=== PATIENT | male | born 1960 | race African-American/Black ===

== ENCOUNTER → 2016-11-22 | Outpatient (CLI) | payer BC ==
[2014-05-20 17:33] VITALS: BP 113/66
[~2016-11-22] MED LIST: AMLO10TA4 PO; ATEN1TAB3 PO; HYDR12.58 PO; IBUP-1060 PO; METH-38 PO; MULT1TAB52 PO; OXYC-323 PO; OXYC5CAP PO; PRED2.5T PO; SENN1TAB7 PO; TAMS0.4C2 PO
--- NOTE | 2016-11-22 13:29 | EKG ---
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
[2016-11-22 13:30] LABS: BASO % 1 % (0-3); EOS % 2 % (0-3); HEMATOCRIT 39.2 % (39.0-53.0); LYMPH # 1.5 x10^3/uL (1.0-4.8); LYMPH % 39 % (24-48); MEAN CORPUSCULAR HEMOGLOBIN 29 pg (25-35); MEAN CORPUSCULAR HGB CONC 33 g/dL (31-37); MEAN CORPUSCULAR VOLUME 86 fL (79-100); MONO % 10 % (0-9); NEUT % 49 % (31-73); PLATELET COUNT 129 x10^3/uL (140-400); RED BLOOD COUNT 4.58 x10^6/uL (4.30-5.70); RED CELL DISTRIBUTION WIDTH 13.2 % (11.5-14.5); WHITE BLOOD COUNT 3.9 x10^3/uL (4.0-11.0)
[2016-11-22 13:40] LABS: INR 1.1 (0.8-1.1); PROTHROMBIN TIME PATIENT 13.6 SEC (11.7-14.0)
[2016-11-22 14:04] LABS: ALBUMIN 3.5 g/dL (3.4-5.0); ALBUMIN/GLOBULIN RATIO 1.1 (1.0-1.7); CALCIUM 8.1 mg/dL (8.5-10.1); CREATININE 1.2 mg/dL (0.7-1.3); GFR 75.5; POTASSIUM 3.9 mmol/L (3.5-5.1); TOTAL BILIRUBIN 0.5 mg/dL (0.2-1.0); TOTAL PROTEIN 6.8 g/dL (6.4-8.2)
== END | disposition home or self-care (01) ==
LOC: SURGPAT 12:58
PROVIDERS: ATTEND Neurological Surgery
DX: M54.16 Radiculopathy, lumbar region (principal)
CPT/HCPCS: 36415; 80053; 85025; 85610; 85730; 87641; 93005

== ENCOUNTER 2016-11-27 07:29 | Observation (INO) | payer BC ==
[2016-11-27] VITALS (15 sets, daily range): BP systolic 114–169; BP diastolic 88–109
[~2016-11-27] VITALS: Ht 180.3 cm; Wt 88.5 kg
[~2016-11-27 07:29] MED LIST changes: -AMLO10TA4 PO; +BACITRACIN 50,000 UNIT in IV NORMAL SALINE 1000ML BAG 1,000 ML IRR ONE; +BUPIVAC MPF-EPI 0.5%-1:200000 10 ML VIAL. ONE; +BUPIVACAINE MPF 0.5% 30 ML VIAL. ONE; +GELATIN SPONGE SIZE 100. ONE; +HYDROmorphone 2 MG/ML VIAL IV PRN; +IV RINGERS,LACTATED 1000ML 1,000 ML IV SCH; +LIDOCAINE 1% 1 ML SYRINGE. ID PRN; +LIDOCAINE 2%/EPI 1:100,000 20 ML VIAL. ONE; -METH-38 PO; -MULT1TAB52 PO; +ONDANSETRON PF 4 MG/2 ML VIAL. IV PRN; +PROCHLORPERAZINE 10 MG/2 ML VIAL. IV PRN; -SENN1TAB7 PO; +THROMBIN TOPICAL 20,000 UNIT SPRAY.SYRN KIT TP ONE; +fentaNYL PF VIAL 100 MCG/2 ML VIAL IV PRN
[2016-11-27] MEDS ORDERED: LIDOCAINE 2% PF Vial for OR 5 ML VIAL. ONE (08:18)
[2016-11-27] MEDS ORDERED: PROPOFOL 20 ML IV ONE (08:18)
[2016-11-27] MEDS ORDERED: DEXAMETHASONE SOD PHOS 20 MG/5 ML VIAL. ONE (08:18)
[2016-11-27] MEDS ORDERED: ONDANSETRON PF 4 MG/2 ML VIAL. ONE (08:18)
[2016-11-27] MEDS ORDERED: fentaNYL PF VIAL 100 MCG/2 ML VIAL ONE ×3 (08:19→13:10)
[2016-11-27] MEDS ORDERED: ePHEDrine PF IN SALINE 50 MG/5 ML DISP.SYRIN IV ONE (08:19)
[2016-11-27] MEDS ORDERED: REMIFENTANIL 2 MG VIAL. IV ONE (08:19)
[2016-11-27] MEDS ORDERED: PROPOFOL 50 ML IV ONE (08:19)
[2016-11-27] MEDS ORDERED: MIDAZOLAM HCL/PF 5 MG/5 ML VIAL. ONE (08:35)
[2016-11-27] MEDS ORDERED: ROCURONIUM 100 MG/10 ML VIAL. ONE (08:47)
[2016-11-27] MEDS ORDERED: DESFLURANE > 120 MINUTES IH ONE (09:30)
--- NOTE | 2016-11-27 12:05 | PDOC ---
BRIEF OPERATIVE NOTE Date: Nov 27, 2016 Pre-Op Diagnosis lumbar stenosis, lumbar radiculopathy Post-Op Diagnosis same Procedure Performed bilateral laminectomy L3-4, L4-5 Surgeon Antoinette Applications System Analyst none Anesthesiologist [place] Anesthesia Type: General Blood Loss 100mL Specimens Obtained decompression Findings prominent stenosis due to degenerative changes, neuromonitoring remained at least baseline throughout the procedure Complications none apparent MIRELLA MORALES MD Nov 27, 2016 12:05
[2016-11-27] MEDS ORDERED: ACETAMINOPHEN 325 MG TABLET. PO PRN (12:15)
[2016-11-27] MEDS ORDERED: fentaNYL PF VIAL 100 MCG/2 ML VIAL IV PRN ×2 (12:15)
[2016-11-27] MEDS ORDERED: ZOLPIDEM 5 MG TABLET. PO PRN (12:15)
[2016-11-27] MEDS ORDERED: diphenhydrAMINE 50 MG/ML VIAL IV PRN (12:15)
[2016-11-27] MEDS ORDERED: PREDNISONE 2.5 MG PO PRN (12:15)
[2016-11-27] MEDS ORDERED: MAG HYDROX/ALUMINUM HYD/SIMETH 30 ML ORAL.SUSP PO PRN (12:15)
[2016-11-27] MEDS ORDERED: NALOXONE 0.4 MG/ML VIAL. IV PRN (12:15)
[2016-11-27] MEDS ORDERED: diphenhydrAMINE HCL 25 MG CAPSULE PO PRN (12:15)
[2016-11-27] MEDS ORDERED: ONDANSETRON PF 4 MG/2 ML VIAL. IV PRN (12:15)
[2016-11-27] MEDS ORDERED: CALCIUM CARBONATE 500 MG TAB.CHEW PO PRN (12:15)
[2016-11-27] MEDS ORDERED: 0.9 % SODIUM CHLORIDE 10 ML DISP.SYRIN. IV PRN (12:15)
[2016-11-27] MEDS ORDERED: MAGNESIUM HYDROXIDE 2,400 MG/30 ML ORAL.SUSP. PO PRN (12:15)
[2016-11-27] MEDS: fentaNYL PF VIAL 100 MCG/2 ML VIAL IV PRN ×4 (12:33→13:25)
[2016-11-27] MEDS ORDERED: MORPHINE SULFATE 4 MG/ML DISP.SYRIN. ONE (12:47)
[2016-11-27] MEDS: MORPHINE SULFATE 2 MG/ML DISP.SYRIN. IV PRN ×3 (12:55→13:26)
[2016-11-27] MEDS ORDERED: MULT1TAB52 PO (14:16)
[2016-11-27] MEDS: oxyCODONE/APAP 5/325 1 TAB TABLET PO PRN ×4 (14:37→21:54)
[2016-11-27] MEDS: FERROUS SULFATE 325 MG TABLET. PO SCH (17:42)
[2016-11-27] MEDS: CALCIUM CARB/VIT D3 500/200 TABLET. PO SCH (17:42)
[2016-11-27] MEDS: SENNOSIDES/DOCUSATE 8.6/50MG TABLET. PO SCH (21:55)
[2016-11-27] MEDS: METHOCARBAMOL 750 MG TABLET PO SCH (21:55)
[2016-11-27] MEDS: DOCUSATE SODIUM 100 MG CAPSULE. PO SCH (21:55)
[2016-11-28 03:15] VITALS: BP 164/114
[2016-11-28] MEDS: oxyCODONE/APAP 5/325 1 TAB TABLET PO PRN ×4 (03:49→16:33)
[2016-11-28 04:00] VITALS: BP 143/96
[2016-11-28] MEDS ORDERED: cloNIDine HCL 0.1 MG TABLET PO ONE (05:30)
[2016-11-28 07:17] VITALS: BP 176/103
[2016-11-28] MEDS: SENNOSIDES/DOCUSATE 8.6/50MG TABLET. PO SCH (08:54)
[2016-11-28] MEDS: METHOCARBAMOL 750 MG TABLET PO SCH ×2 (08:54→14:34)
[2016-11-28] MEDS: DOCUSATE SODIUM 100 MG CAPSULE. PO SCH (08:54)
[2016-11-28] MEDS: FERROUS SULFATE 325 MG TABLET. PO SCH ×2 (08:54→16:33)
[2016-11-28] MEDS: CALCIUM CARB/VIT D3 500/200 TABLET. PO SCH ×2 (08:54→16:33)
[2016-11-28] MEDS ORDERED: MULTIVITAMIN with MINERAL TABLET. PO SCH (09:00)
[2016-11-28] MEDS ORDERED: amLODIPine BESYLATE 10 MG TABLET PO SCH (09:00)
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
--- NOTE | 2016-11-28 10:40 | PDOC ---
SUBJECTIVE Subjective Reports significant improvement/resolution of lower extremity pain and numbness. Reports that he feels steadier with ambulation compared to before surgery. Denies acute complaints this AM. Some elevated BP's reported - may be related to incisional pain, but internal medicine consulted for any additional recs. OBJECTIVE Vital Signs Vital Signs Date Time Temp Pulse Resp B/P (MAP) Pulse Ox O2 Delivery O2 Flow Rate FiO2 11/28/16 10:00 18 Room Air 11/28/16 08:55 80 176/103 11/28/16 08:55 18 Room Air 11/28/16 08:00 Room Air 11/28/16 07:17 98.4 80 20 176/103 (127) 97 Room Air 98.4 11/28/16 05:29 82 164/114 11/28/16 05:00 95 11/28/16 04:00 80 143/96 (112) 11/28/16 03:49 20 95 11/28/16 03:15 98.6 3 20 164/114 (131) 97 Room Air 98.6 11/27/16 23:30 80 160/90 (113) 11/27/16 23:05 98.5 80 23 169/96 (120) 100 Room Air 98.5 11/27/16 23:00 18 94 Room Air 11/27/16 21:54 20 94 Room Air 11/27/16 21:30 79 20 145/89 (107) 97 Room Air 11/27/16 20:30 Nasal Cannula 11/27/16 20:30 80 114/90 (98) 11/27/16 19:45 97.8 79 22 165/92 (116) 98 Room Air 97.8 11/27/16 18:45 98.0 80 18 162/95 (117) 98 Nasal Cannula 2.0 98.0 11/27/16 17:45 97.8 79 18 157/99 (118) 99 Nasal Cannula 2.0 97.8 11/27/16 17:45 16 Room Air 11/27/16 16:45 97.6 81 20 169/109 (129) 98 Nasal Cannula 2.0 97.6 11/27/16 16:15 69 18 160/106 (124) 99 Nasal Cannula 2.0 11/27/16 15:45 149/89 (109) 11/27/16 15:14 98.0 72 20 138/91 (107) 98 Nasal Cannula 2.0 98.0 11/27/16 14:45 148/88 (108) 11/27/16 14:30 97.3 70 18 150/90 (110) 97 Nasal Cannula 2.0 97.3 11/27/16 14:15 152/92 (112) 11/27/16 14:00 97.5 73 18 163/108 (126) 98 Nasal Cannula 2.0 97.5 11/27/16 13:26 15 97 Room Air 2.0 11/27/16 13:25 15 97 Room Air 2.0 11/27/16 13:14 15 97 Nasal Cannula 2.0 11/27/16 13:13 98.1 69 15 160/97 97 Nasal Cannula 2 98.1 11/27/16 13:05 15 94 Room Air 10.0 11/27/16 12:58 97.1 75 15 149/93 94 Room Air 97.1 11/27/16 12:55 15 100 Simple Mask 10.0 11/27/16 12:43 97.1 72 15 145/94 96 Simple Mask 10.0 97.1 11/27/16 12:43 100 Simple Mask 10.0 11/27/16 12:33 13 100 Simple Mask 10.0 11/27/16 12:13 97.1 68 15 150/87 100 Simple Mask 10 97.1 11/27/16 12:13 98.1 75 15 148/97 97 2 98.1 I & O Intake and Output 11/28/16 07:00 Intake Total 2390 ml Output Total 1000 ml Balance 1390 ml Intake Oral 1340 ml IV Total 1050 ml Output Urine Total 900 ml Estimated Blood Loss 100 ml PHYSICAL EXAM Physical Exam AAOx4, NAD, FARFAN 5/5, dressing c/d/i, flat ASSESSMENT/PLAN Assessment/Plan POD 1 lumbar laminectomy -recovering well thus far -activity with standard post-op restrictions -may d/c home from NS standpoint if still okay with IM -appreciate IM consultation Problems: COMMENT Lab Laboratory Tests Test 11/27/16 12:21 Glucose (Fingerstick) 148 mg/dL (70-99) MIRELLA MORALES MD Nov 28, 2016 10:40
[2016-11-28] MEDS ORDERED: SENN1TAB7 PO (11:45)
[2016-11-28] MEDS ORDERED: METH-38 PO (11:46)
[2016-11-28] MEDS ORDERED: AMLO10TA4 PO (11:47)
--- NOTE | 2016-11-28 11:59 | OP ---
DATE OF SURGERY: 11/27/2016 SURGEON: Marcos Morales M.D. SPEECH CLINICIAN: None. PREOPERATIVE DIAGNOSES: Lumbar stenosis, lumbar spondylosis, lumbar radiculopathy with low back pain and gait disturbance. POSTOPERATIVE DIAGNOSES: Lumbar stenosis, lumbar spondylosis, lumbar radiculopathy with low back pain and gait disturbance. PROCEDURE: Bilateral laminectomy of lumbar 3-4 and lumbar 4-5 with intraoperative use of neuromonitoring and intraoperative use of microscope. ANESTHESIA: General. COMPLICATIONS: None intraprocedurally. INDICATIONS FOR THE PROCEDURE: The patient is a pleasant 56-year-old gentleman with significant bilateral lower extremity pain and difficulty with ambulation secondary to this. He has been refractory to multiple conservative treatments and was noted to have prominent stenosis at lumbar 3-4 and lumbar 4-5. Based on these things, it was felt that he may benefit from surgical decompression. Please refer to the patient chart for additional details. DESCRIPTION OF PROCEDURE: After informed consent was obtained, the patient was brought into the operating room. He was placed under general anesthesia. He was placed in the prone position on the Stevie table. All pressure points were checked and padded appropriately. Neuromonitoring was instituted and baseline potentials were obtained. Fluoroscopy was localized in appropriate incision location, centered over the region of lumbar 3-4 and lumbar 4-5. This area was incised in a vertical fashion over the lumbar 3, 4 and 5 spinous processes and the avascular midline was dissected through the spinous processes at these levels. Dissection was carried bilaterally across the lamina at lumbar 3, lumbar 4 and lumbar 5 and the junctions/disk spaces were localized with fluoroscopy prior to the initiation of decompression. Once this was complete, bilateral laminectomy was performed across the junction of lumbar 4-5 cephalad to across the junction at lumbar 3-4 where the disk spaces were located, which were regions of most severe stenosis. This was performed with a Leksell as well as a pneumatic drill and a Kerrison rongeur. The underlying ligaments were noted to be significantly hypertrophied. These were gently dissected free from the neural elements with a Mehul and a blunt nerve hook and gently removed with a pituitary rongeur. Decompression was carried out to the bilateral lateral recesses at these locations. Upon completion of this, the thecal sac was noted to be very well decompressed, which was verified with direct visualization as well as gentle palpation with a Mehul and a Muhammad ball. Fluoroscopically, the extent of the decompression was also verified to be significantly cephalad and caudal to the regions of radiographically identified stenosis. Upon completion of this, pristine hemostasis was achieved with FloSeal, cottonoids, generous irrigation and some use of bipolar electrocautery. The wound was generously irrigated with antibiotic irrigation prior to the final closure. Muscles and fascia were then reapproximated with 0 Vicryl in a simple interrupted fashion. The subcutaneous tissues were reapproximated with 2-0 Vicryl in interrupted inverted fashion and the skin was reapproximated with 4-0 Vicryl in a running subcuticular fashion. Mastisol and Steri-Strips were applied and the wound was dressed with Telfa and Tegaderm. At the end the procedure, all needle and sponge counts were correct times 2. Neuromonitoring potentials remained at least at baseline throughout the integrity of the procedure. The patient was subsequently extubated in the operating room and taken to recovery in stable condition. There were no intraprocedural complications apparent. MARCOS MORALES MD DR: ÁNGEL/marcela JOB#: [id number] / [id number]
[2016-11-28 12:07] VITALS: BP 98/59
[2016-11-28 15:21] VITALS: BP 95/54
[2016-11-28 18:00] VITALS: BP 96/44
--- NOTE | 2016-11-29 09:01 | PATHOLOGY ---
PATHOLOGY REPORT * * * * * * * * FINAL DIAGNOSIS: Segments of fibrocartilaginous, adipose, and skeletal muscle tissue and bone, lumbar decompression: - Degenerative changes of fibrocartilaginous tissue. COMMENT: There is no evidence of an acute inflammatory process or malignancy. (JPM:mgr; 11/28/2016) REPORT ELECTRONICALLY SIGNED BY: John White M.D. DATE/TIME: 11/29/2016 09:00 * * * * * * * * GROSS PATHOLOGY: Received in formalin labeled "Jun Evangelista, lumbar decompression" are multiple segments of limon, rubbery, and gritty tissue admixed with bone. The specimen measures 7.5 x 5.3 x 2.8 cm in aggregate dimensions. The tissue is submitted representatively in cassette A1, following decalcification. (JPM; 11/27/16) INITIAL CPT CODE(S): A; 91465, 64685 Professional services performed [place] [place] [address] Technical services performed by [facility] at [address] [place] [address] [address] [address]. SPECIMEN(S) RECEIVED: A.Lumbar decompression CLINICAL HISTORY: Lumbar stenosis, radiculopathy, low back pain, spondylosis PATIENT: JUN EVANGELISTA JR /AGE: 3 1960 (Age: 56) PATIENT #: [id number] ALT CASE #: SPECIMEN COLLECTION DATE: 11/27/2016 SPECIMEN RECEIVED DATE: 11/27/2016 [facility] - [address] [place] [address] - PHONE: [phone] * * * END OF REPORT * * *
== END 2016-11-28 18:35 | disposition home or self-care (01) ==
LOC: SURG 07:29 → 4 SOUTHEST 12:30
PROVIDERS: ADMIT Neurological Surgery; ATTEND Neurological Surgery
DX: M48.06 Spinal stenosis, lumbar region (principal); M47.26 Other spondylosis with radiculopathy, lumbar region; I97.3 Postprocedural hypertension; G89.29 Other chronic pain; N40.0 Benign prostatic hyperplasia without lower urinary tract symptoms; G47.33 Obstructive sleep apnea (adult) (pediatric)
CPT/HCPCS: 63047; 63048; 76000; 82962; 97161; 97165; G0378; G0379; J1100; J2250; J2270; J2704; J3010; J3490; J7030; 88304; 88311; J2405; J2001

== ENCOUNTER → 2017-03-27 | Outpatient (CLI) | payer BC ==
[~2017-03-27] MED LIST changes: +AMLO10TA4 PO; -BACITRACIN 50,000 UNIT in IV NORMAL SALINE 1000ML BAG 1,000 ML IRR ONE; -BUPIVAC MPF-EPI 0.5%-1:200000 10 ML VIAL. ONE; -BUPIVACAINE MPF 0.5% 30 ML VIAL. ONE; +GADOBUTROL 10 MMOL/10 ML VIAL IV ONE; -GELATIN SPONGE SIZE 100. ONE; -HYDROmorphone 2 MG/ML VIAL IV PRN; -IV RINGERS,LACTATED 1000ML 1,000 ML IV SCH; -LIDOCAINE 1% 1 ML SYRINGE. ID PRN; -LIDOCAINE 2%/EPI 1:100,000 20 ML VIAL. ONE; +METH-38 PO; +MULT1TAB52 PO; -ONDANSETRON PF 4 MG/2 ML VIAL. IV PRN; -PROCHLORPERAZINE 10 MG/2 ML VIAL. IV PRN; +SENN1TAB7 PO; -THROMBIN TOPICAL 20,000 UNIT SPRAY.SYRN KIT TP ONE; -fentaNYL PF VIAL 100 MCG/2 ML VIAL IV PRN
--- NOTE | 2017-03-27 15:12 | KCIC ---
MRI Lumbar Spine without and with contrast History: Lumbar radiculopathy, low back pain, previous surgery Technique: Multiplanar, multi sequential pre and postcontrast MR imaging was performed of the lumbar spine. Contrast: 9 cc Gadavist Comparison: None other than CT lumbar spine exam April 29, 2014 Findings: Lumbar vertebral body stature and AP alignment are preserved. There is no significant edema of the vertebral bodies. There is nonspecific edema of the left L4 and L5 pedicles, very minimally on the right at these levels. There is mild degenerative disc disease at L3-4. Conus terminates at L1-2. There is no nodular enhancement of the conus or cauda equina. There is no enhancement or fluid in the intervertebral disc spaces. There is prominent somewhat heterogeneous enhancing soft tissue posteriorly at sites of posterior decompression at L3-4 and L4-5. There is also more focal fluid collection with mild peripheral enhancement located just deep to the central aspect of the subcutaneous fat at the L3 to L5 levels up to 1.9 cm transverse by 1.6 cm AP by 5.8 cm CC. L1-L2: Spinal canal and neural foramina are adequate. There is mild facet hypertrophic change and buckling of the ligamentum flavum. L2-L3: There is minimal disc osteophyte complex. There is nhca-os-lhfldxqb facet hypertrophic change and buckling of the ligamentum flavum. There is prominence of posterior epidural fat. Spinal canal is not significantly narrowed. Neural foramina are overall adequate. L3-L4: There has been posterior decompression. There is facet hypertrophic change. There is minimal disc osteophyte complex and bulge. Spinal canal is overall adequate. There is minimal inferior narrowing of the right neural foramen from anteriorly by disc osteophyte complex. There is moderate to severe narrowing of the left neural foramen in part from disc osteophyte complex and facet degenerative change. There is also left extraforaminal protrusion with associated annular tear with contact of the ventral undersurface of the extraforaminal left L3 nerve root. L4-L5: There has been posterior decompression. There is bilateral facet degenerative change There is minimal disc osteophyte complex and bulge. Enhancing fibrosis slightly indents the posterior aspect of the thecal sac just below the intervertebral disc space level. The spinal canal is not significantly narrowed. There is moderate narrowing of the left neural foramen by disc osteophyte complex and facet, also smot-kz-wfdnwcuo narrowing on the right. L5-S1: There is moderate to severe facet degenerative change. Spinal canal is adequate, no impingement descending S1 nerve roots. There is jgnb-hd-ojrtkybo, left greater than right neural foramina compromise. There is a small synovial cyst along the anterior margin of the right facet of the 0.3 cm in size, near the dorsal surface exiting right L5 nerve root without significant displacement. Impression: 1. There has been posterior decompression at L3-4 and L4-5, exuberant enhancing presumable fibrosis posteriorly in the soft tissues. There is also nonspecific fluid collection just deep to the central aspect of the subcutaneous fat of uncertain sterility. Enhancing fibrosis slightly indents the posterior aspect of the thecal sac the level of the superior aspect of L5 without significant spinal stenosis. There is nonspecific edema of the left L4 and L5 pedicles, may be reactive/degenerative in etiology. 2. There is mild degenerative disc disease L3-4. There is multilevel mild spondylosis. 3. There is neural foramina compromise as stated greatest on the left at L3-4, also left extraforaminal protrusion at L3-4 contacting the extraforaminal left L3 nerve root. There is a somewhat lesser degree of neural foramina compromise bilaterally at L4-5 and L5-S1. Electronically signed by: Lefty Kaye MD (03/27/2017 3:09 PM) [facility]
== END | disposition home or self-care (01) ==
LOC: KCIC MRI 13:10
PROVIDERS: ATTEND Neurological Surgery
DX: M51.16 Intervertebral disc disorders with radiculopathy, lumbar region (principal)
CPT/HCPCS: 72158; A9585

== ENCOUNTER → 2018-05-19 | Outpatient (CLI) | payer OTHER ==
[~2018-05-19] MED LIST changes: -GADOBUTROL 10 MMOL/10 ML VIAL IV ONE; +MIRA50TA PO; -OXYC-323 PO; +OXYC1TAB15 PO; +SENN-161 PO; -SENN1TAB7 PO
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
== END | disposition home or self-care (01) ==
LOC: PNCL 11:09
PROVIDERS: ATTEND Anesthesiology
DX: M48.07 Spinal stenosis, lumbosacral region (principal); M51.27 Other intervertebral disc displacement, lumbosacral region; M19.90 Unspecified osteoarthritis, unspecified site; M79.604 Pain in right leg; Z88.2 Allergy status to sulfonamides
CPT/HCPCS: G0463

== ENCOUNTER → 2018-06-02 | Outpatient (CLI) | payer OTHER ==
[~2018-06-02] MED LIST changes: +IOHEXOL 180 MG/ML 10 ML VIAL. ONE; +methylPREDNISolone ACETATE 40 MG/ML VIAL. ONE; +methylPREDNISolone ACETATE 80 MG/ML VIAL. ONE
--- NOTE | 2018-06-03 02:42 | PAIN ---
DATE OF SERVICE: 06/02/2018 DIAGNOSES: Lumbar radiculopathy with lumbar spinal stenosis, lumbar degenerative disk disease, post-lumbar laminectomy syndrome. HISTORY OF PRESENT ILLNESS: The patient is a 57-year-old male who returns for followup status post initial evaluation and preauthorization for lumbar epidural steroid injection. The patient has obtained that and would like to proceed today. The patient still reports pain in low back, right lower extremity as it was previously with radiating pain, posterior gluteus, posterior lateral thigh, lateral anterior thigh, medial thigh, posterior thigh, medial lower leg and posterior calf. The patient reports it is worse with walking, standing, change in positions. The patient reports it is a 10 on a scale of 10 at its worst, 10 on average, 8 at its least and is a 10 today. The patient reports it is aching, dull, tight across the low back with tingling, burning, cramping pain into the right leg, radiating, becoming more constant and severe, unbearable, worse with walking, standing, changing positions, better with sitting or lying down, but awakens him from sleep several times at night. The patient reports no new motor or sensory deficits. No new bowel or bladder incontinence, but still significant pain as described. PHYSICAL EXAMINATION: VITAL SIGNS: The patient's blood pressure 119/82, pulse 69, respirations are 16, temperature is 97.9 degrees Fahrenheit, height is 5 feet 11 inches, weight is 218 pounds. GENERAL: The patient is awake, alert, oriented, appropriate, very pleasant demeanor. HEENT: Shows normocephalic, atraumatic. Extraocular movements are intact and symmetrical. Oral cavity: Mucous membranes moist and pink. Dentition is intact. NECK: Shows anterior throat supple without palpable lymphadenopathy noted. Swallow reflex is symmetrical. CHEST: Shows normal on inspection. Breath sounds are clear to auscultation bilaterally. HEART: Shows S1, S2 clear. No murmurs auscultated. ABDOMEN: Soft, nontender, nondistended. No palpable organomegaly is noted. No rebound or guarding demonstrated. BACK: Shows spine grossly in the midline, some flattening of lumbar lordotic curvature is noted with well healed surgical scar. Lumbar paraspinous muscle shows symmetrical on inspection. With palpation shows some moderate tenderness throughout the upper, middle, lower distribution of paraspinous muscles, but only diffusely without radiation. The patient has good rotational motion of lumbar spine, both laterally as well as extension and flexion without difficulty. EXTREMITIES: Lower extremities show deep tendon reflexes 1+ in the patellar and tendo calcaneus tendons are equal. Motor exam is strong with approximately 4 on a scale of 5 with right dorsiflexion and extension and 5/5 on the left. Peripheral pulses are 1+ posterior tibia. No peripheral edema is noted bilaterally. Options were discussed with the patient. The patient's old chart was reviewed as was his current medication regimen updated. Current review of systems is updated today as well and we will proceed with a lumbar epidural steroid injection today with fluoroscopic guidance. Risks were again discussed including, but not limited to bleeding, infection, possibility of epidural hematoma, subsequent neurologic compromise, dural puncture, headaches, spinal cord and/or nerve damage, side effects of steroid medication and poor results regarding pain control. The patient understands and wished to proceed. The patient will return to the clinic in approximately 2 weeks for followup, was counseled on return appointment, activity level and side effects to be aware of. DIAGNOSES: Lumbar radiculopathy with lumbar degenerative disk disease, lumbar spinal stenosis and post-lumbar laminectomy syndrome. PROCEDURE: Lumbar epidural steroid injection, translaminar approach L4-L5 level using C-harjinder fluoroscopic guidance under sterile prep and drape using local anesthetic. MEDICATION INJECTED: A total of 120 mg Depo-Medrol plus 10 mL of preservative-free normal saline and 2 mL of Isovue for contrast. CONDITION AT DISCHARGE: Stable. The patient tolerated the procedure well, had no complications. WENDY CASTELLANOS MD DR: JAMAL/marcela JOB#: [id number] / [id number]
== END | disposition home or self-care (01) ==
LOC: PNCL 10:06
PROVIDERS: ATTEND Anesthesiology
DX: M51.16 Intervertebral disc disorders with radiculopathy, lumbar region (principal); M48.061 Spinal stenosis, lumbar region without neurogenic claudication; M96.1 Postlaminectomy syndrome, not elsewhere classified; Z88.2 Allergy status to sulfonamides
CPT/HCPCS: 62323; J1030; J1040; Q9965

== ENCOUNTER → 2018-06-19 | Outpatient (CLI) | payer OTHER ==
[~2018-06-19] MED LIST changes: -IOHEXOL 180 MG/ML 10 ML VIAL. ONE; -methylPREDNISolone ACETATE 40 MG/ML VIAL. ONE; -methylPREDNISolone ACETATE 80 MG/ML VIAL. ONE
--- NOTE | 2018-06-19 22:20 | PAIN ---
DATE OF SERVICE: 06/19/2018 DIAGNOSES: Lumbar radiculopathy with lumbar spinal stenosis, lumbar degenerative disk disease and post-lumbar laminectomy syndrome. HISTORY OF PRESENT ILLNESS: The patient is a 58-year-old male who returns for followup status post lumbar epidural steroid injection x 1 on 06/02/2018. The patient did very well with a 70% improvement for about the first 3 weeks or so. The patient reports the pain is returning now, but not near baseline, still doing much better. Pain in the low back, right lower extremity radiating to the right lateral anterior thigh, anterior medial thigh, medial lower leg and into the calf on the right side as well as in the low back and right side. The patient reports it is a 9 on a scale of 10 at its worst, now 7 on average, 2 at its least and is a 3 today. The patient reports it is aching, tight, tingling, cramping, shooting, radiating pain becoming more constant, more severe and he is able to increase his activity with distance walking greater, doing work activities, household activities and is able to move about much easier as still awakes him from sleep occasionally, but not every night only sporadically. The patient reports no new motor or sensory deficits, no new bowel or bladder incontinence or other complaints. Again, the patient is doing very well, still doing strengthening exercises. He also says started water physical therapy. He has had two sessions so far as in the session tomorrow feel like this is helping to a mild extent as well. PHYSICAL EXAMINATION: VITAL SIGNS: Today, the patient's blood pressure 150/107, pulse 67, respirations 16, temperature 98.1 degrees Fahrenheit, height is 5 feet 11 inches, weight is 217 pounds. GENERAL: The patient is awake, alert, oriented, appropriate, very pleasant demeanor. HEENT: Head shows normocephalic, atraumatic. Extraocular movements are intact and symmetrical. Oral cavity: Mucous membranes moist and pink. Dentition is intact. NECK: Shows anterior throat supple without palpable lymphadenopathy noted. Swallow reflex symmetrical. CHEST: Shows normal with inspection. Breath sounds are clear to auscultation bilaterally. HEART: Shows S1, S2 clear. No murmurs auscultated. ABDOMEN: Soft, nontender, nondistended. No palpable organomegaly is noted. No rebound or guarding demonstrated. BACK: Shows spine grossly in the midline. Normal appearing thoracic kyphosis and lumbar lordotic curvature. Lumbar lateral curvature is slightly flattened with well-healed surgical scarring. Lumbar paraspinous muscle shows symmetrical on inspection with palpation shows some moderate tenderness only diffusely without significant radiation. EXTREMITIES: The patient's lower extremities show deep tendon reflexes at 1+ in the patellar and tendo-calcaneus tendons. Motor exam is approximately 4 on a scale of 5 on the right, 5/5 on the left. Peripheral pulses are 1+ posterior tibia. No peripheral edema is noted. The patient does have a very mild straight leg raise on the right side about 45 degrees, decreased with knee flexion, left side is negative. Options were discussed with the patient. The patient's old chart was reviewed as his current medication regimen updated. Current review of systems updated today as well. We will preauthorize the patient for a second lumbar epidural steroid injection today with fluoroscopic guidance. The patient will continue to do physical therapy and maintain water therapy appointments and hamstring stretching and strengthening exercises on his own will return to clinic in approximately 1 week. We will plan on second lumbar epidural steroid injection at that time at the L4-L5 level for L4-L5 radiculopathy on the right. WENDY CASTELLANOS MD DR: JAMAL/nts JOB#: [id number] / [id number]
== END | disposition home or self-care (01) ==
LOC: PNCL 10:11
PROVIDERS: ATTEND Anesthesiology
DX: M48.061 Spinal stenosis, lumbar region without neurogenic claudication (principal); M51.16 Intervertebral disc disorders with radiculopathy, lumbar region; M96.1 Postlaminectomy syndrome, not elsewhere classified
CPT/HCPCS: G0463

== ENCOUNTER → 2018-07-03 | Outpatient (CLI) | payer OTHER ==
[~2018-07-03] MED LIST changes: +IOHEXOL 180 MG/ML 10 ML VIAL. ONE; +methylPREDNISolone ACETATE 40 MG/ML VIAL. ONE; +methylPREDNISolone ACETATE 80 MG/ML VIAL. ONE
--- NOTE | 2018-07-03 21:13 | PAIN ---
DATE OF SERVICE: 07/03/2018 PROGRESS NOTE FOR PAIN CLINIC DIAGNOSIS: Lumbar radiculopathy with lumbar spinal stenosis, lumbar degenerative disk disease and post-lumbar laminectomy syndrome. HISTORY OF PRESENT ILLNESS: The patient is a 58-year-old male who returns for followup status post lumbar epidural steroid injection x 1. Again, the patient did approximately 70% better after the first injection. He is preauthorized for a second injection today. He still has pain in the low back, right lower extremity as it was previously, posterior gluteus, posterior thigh, lateral thigh, anterior thigh, medial thigh, medial lower leg and ankle and foot. The patient reports it is a 10 on a scale of 10 at its worst, 10 on average, 6 at its least over the last week. The patient reports it is aching, sharp, dull, tight, shooting, tingling, burning, cramping, radiating, becoming more severe, more constant, on and off in intensity, but worse with standing and walking, better with sitting or lying down. The patient reports it awakens him from sleep now where initially it was not, he was doing better with distance walking, doing activities at home as well as traveling with greater ease and comfort, now it is beginning to awaken him from sleep again. The patient reports no new motor or sensory deficits, no new bowel or bladder incontinence or other complaints. PHYSICAL EXAMINATION: VITAL SIGNS: The patient's blood pressure is 117/62, pulse 75, respirations 16, temperature 98.1 degrees Fahrenheit, height is 5 feet 11 inches, weight is 217 pounds. GENERAL: The patient is awake, alert, oriented, appropriate, very pleasant demeanor. HEENT: Shows normocephalic, atraumatic. Extraocular movements are intact and symmetrical. Oral cavity: Mucous membranes are moist and pink. Dentition is intact. NECK: Shows anterior throat supple without palpable lymphadenopathy noted. Swallow reflex is symmetrical. CHEST: Shows normal on inspection. Breath sounds are clear to auscultation bilaterally. HEART: Shows S1, S2 clear. No murmurs auscultated. ABDOMEN: Soft, nontender, nondistended. No palpable organomegaly is noted. No rebound or guarding demonstrated. BACK: Shows spine grossly in the midline. Normal appearing thoracic kyphosis. Some minor flattening of lumbar lordotic curvature. Well-healed surgical scarring noted in the lumbar distribution. Lumbar paraspinous muscle shows symmetrical on inspection, on palpation shows some moderate tenderness diffusely throughout the upper, middle and lower distribution of the paraspinous muscles, but only diffusely without radiation. The patient has good rotational motion both laterally as well as extension and flexion of the lumbar spine without difficulty. EXTREMITIES: Lower extremities show deep tendon reflexes at 1+ in the patellar and tendo calcaneus tendons. Motor exam is approximately 4 on a scale of 5 on the right with dorsiflexion and extension, 5/5 on the left. Peripheral pulses are 1+ posterior tibia. No peripheral edema is noted bilaterally. Options were discussed with the patient. The patient's old chart was reviewed as his current medication regimen updated. Current review of systems updated today as well. We will proceed with a second in the series of lumbar epidural steroid injection today with fluoroscopic guidance. Risks were again discussed including, but not limited to bleeding, infection, possibility of epidural hematoma, subsequent neurologic compromise, dural puncture, headaches, spinal cord and/or nerve damage, side effects of steroid medication and poor results regarding pain control. The patient understands and wished to proceed. The patient will return to the clinic in approximately 2 weeks for followup, was counseled as to return appointment, activity level and side effects to be aware of. DIAGNOSIS: Lumbar radiculopathy with lumbar degenerative disk disease, lumbar spinal stenosis and post-lumbar laminectomy syndrome. PROCEDURE: Lumbar epidural steroid injection, translaminar approach at L4-L5 level using C-arm fluoroscopic guidance under sterile prep and drape using local anesthetic. MEDICATION INJECTED: A total of 120 mg Depo-Medrol plus 10 mL of preservative-free normal saline and 2 mL of contrast. CONDITION AT DISCHARGE: Stable. The patient tolerated the procedure well, had no complications. WENDY CASTELLANOS MD DR: JAMAL/marcela JOB#: [id number] / [id number]
== END | disposition home or self-care (01) ==
LOC: PNCL 10:20
PROVIDERS: ATTEND Anesthesiology
DX: M51.16 Intervertebral disc disorders with radiculopathy, lumbar region (principal); M48.061 Spinal stenosis, lumbar region without neurogenic claudication; M96.1 Postlaminectomy syndrome, not elsewhere classified; Z88.2 Allergy status to sulfonamides
CPT/HCPCS: 62323; J1030; J1040; Q9965

== ENCOUNTER → 2018-07-17 | Outpatient (CLI) | payer OTHER ==
[~2018-07-17] MED LIST changes: -IOHEXOL 180 MG/ML 10 ML VIAL. ONE; -methylPREDNISolone ACETATE 40 MG/ML VIAL. ONE; -methylPREDNISolone ACETATE 80 MG/ML VIAL. ONE
--- NOTE | 2018-07-18 00:29 | PAIN ---
DATE OF SERVICE: 07/17/2018 PROGRESS NOTE FOR PAIN CLINIC DIAGNOSES: Lumbar radiculopathy with lumbar spinal stenosis, lumbar degenerative disk disease and post lumbar laminectomy syndrome. HISTORY OF PRESENT ILLNESS: The patient is a 58-year-old male who returns for followup status post lumbar epidural steroid injection x 2. The patient reports again about 65% improvement after the last injection, with pain in the low back and right lower extremity still present, but still helping. The patient reports it has been about 3 weeks now since he had the injection and the pain is still decreased by 65%. The patient reports he has some better days than others. Some days, it can be as high as a 10 on a scale of 10. On average, it is an 8 and at its least, it is a 3 and it is a 3 today. The patient reports it is aching, tight, tingling, cramping, shooting, radiating in the right lower extremity in the L4-L5 dermatomal distribution as well as previously on the right side anterior thigh, lateral thigh, anterior medial lower leg, medial calf and into the ankle on the right side. The patient reports again it is worse with walking and standing, better with sitting or lying down. It does not awaken him from sleep currently. The patient reports he is trying to decrease his pain medication and has been successful so far doing this. The patient reports no new motor or sensory deficits. No new bowel or bladder incontinence. Still painful with extended standing greater than 15-20 minutes or walking greater than 15-20 minutes. No new bowel or bladder incontinence or other complaints. PHYSICAL EXAMINATION: VITAL SIGNS: The patient's blood pressure is 150/90, pulse 53, respirations 16 and temperature is 97.9 degrees Fahrenheit. Height is 5 feet 11 inches and weight is 221 pounds. GENERAL: The patient is awake, alert, oriented, appropriate, very pleasant demeanor. HEENT EXAMINATION: Shows normocephalic, atraumatic. Extraocular movements are intact and symmetrical. Oral cavity, mucous membranes are moist and pink. Dentition is intact. NECK: Shows anterior throat supple, without palpable lymphadenopathy noted. Swallow reflex is symmetrical. CHEST: Shows normal on inspection. Breath sounds are clear to auscultation bilaterally. HEART: Shows S1, S2 clear. No murmurs auscultated. ABDOMEN: Soft, nontender and nondistended. No palpable organomegaly is noted. No rebound or guarding demonstrated. BACK: Shows spine grossly in the midline. Normal-appearing thoracic kyphosis and some slight flattening of the lumbar lordotic curvature. Well-healed surgical scar noted. Lumbar paraspinous muscle shows symmetrical on inspection. On palpation, it shows some moderate tenderness diffusely, but only diffusely without radiation. EXTREMITIES: The patient's lower extremities show deep tendon reflexes 1+ in the patellar and tendo calcaneus tendons. Motor exam is approximately 4 on a scale of 5 on the right with dorsiflexion and extension and 5/5 on the left. Peripheral pulses are 1+ posterior tibia. No peripheral edema is noted bilaterally. Options were discussed with the patient. The patient's old chart was reviewed as was his current medication regimen updated. Current review of systems updated today as well. We will proceed with a preauthorization for a third lumbar epidural steroid injection, as the patient has done very well with the first 2, lasting several weeks, still with pain in a radicular pattern at L4-L5 dermatomal distribution on the right. We will preauthorize him for a L4-L5 translaminar approach epidural steroid injection #3. The patient will return to the clinic once preauthorization is made. He will continue with walking and stretching exercises and excising to the best of his ability in the meantime and will follow up as scheduled. WENDY CASTELLANOS MD DR: JAMAL/marcela JOB#: [id number] / [id number]
== END | disposition home or self-care (01) ==
LOC: PNCL 10:05
PROVIDERS: ATTEND Anesthesiology
DX: M51.16 Intervertebral disc disorders with radiculopathy, lumbar region (principal); M48.061 Spinal stenosis, lumbar region without neurogenic claudication; M96.1 Postlaminectomy syndrome, not elsewhere classified
CPT/HCPCS: G0463

== ENCOUNTER → 2018-08-19 | Outpatient (CLI) | payer OTHER ==
--- NOTE | 2018-08-20 00:45 | PAIN ---
DATE OF SERVICE: 08/19/2018 DIAGNOSES: Lumbar radiculopathy with lumbar spinal stenosis, lumbar degenerative disk disease and post-lumbar laminectomy syndrome. HISTORY OF PRESENT ILLNESS: The patient is a 58-year-old male who returns for followup status post lumbar epidural steroid injection x 2, most recently on 07/03/2018. The patient reports about 65% improvement for about a month after the injection. The patient reports the pain is returning now over the past 2 weeks or so, worse with activity, standing, walking, changing positions, across the low back into the right lower extremity as it was previously, posterior lateral thigh, lateral anterior thigh, medial thigh, medial lower leg and calf as well as the medial ankle with some tingling and numbness in the right foot. The patient reports it is worse with standing, walking, better with sitting or lying down, does not awaken him from sleep at night. The patient reports it is aching pain. It is tight, burning, cramping, radiating into the right leg and becoming more constant. No symptoms on the left leg. The patient reports it is an 8 on a scale of 10 at its worst over the past week, 7 on average and a 3 at its least and is a 7 today. The patient reports no new motor or sensory deficits, no new bowel or bladder incontinence or other complaints. PHYSICAL EXAMINATION: VITAL SIGNS: The patient's blood pressure 145/98, pulse 68, respirations 18, temperature 98.2 degrees Fahrenheit, height is 5 feet 11 inches, weight is 222 pounds. GENERAL: The patient is awake, alert, oriented, appropriate, very pleasant demeanor. HEENT: Shows normocephalic, atraumatic. Extraocular movements are intact and symmetrical. Oral cavity: Mucous membranes moist and pink. Dentition is intact. NECK: Shows anterior throat supple without palpable lymphadenopathy noted. Swallow reflex symmetrical. CHEST: Shows normal on inspection. Breath sounds are clear to auscultation bilaterally. HEART: Shows S1, S2 clear. No murmurs auscultated. ABDOMEN: Soft, nontender, nondistended. No palpable organomegaly is noted. No rebound or guarding demonstrated. BACK: Shows spine grossly in the midline. Normal appearing thoracic kyphosis and lumbar lordotic curvature. Lumbar paraspinous muscle shows symmetrical on inspection. On palpation shows some moderate tenderness diffusely with palpation. Well-healed surgical scar is again noted. No trigger points, no radiation, no atrophy or hypertrophy. The patient has good rotational motion of lumbar spine, both laterally as well as extension and flexion without significant difficulty. EXTREMITIES: Lower extremities show deep tendon reflexes at 1+ in the patellar and tendo calcaneus tendons. Motor exam is approximately 4 on a scale 5 on the right with quadriceps and hamstring flexion as well as dorsiflexion and extension and 5/5 on the left. Peripheral pulses are 1+ posterior tibia. Straight leg raise noted to be mildly positive on the right side about 40 degrees, left side is negative. Peripheral pulses are 1+ posterior tibia. No peripheral edema is noted bilaterally. Options were discussed with the patient. The patient's old chart was reviewed as was his current medication regimen updated. Current review of systems is updated today as well and we will preauthorize the patient for a third in the series of lumbar epidural steroid injections as he did very well after the last two with L4-L5 radicular pain in the right leg following the L4-L5 dermatomal distribution and we will preauthorize the patient for a translaminar approach at the L4-L5 level for lumbar epidural steroid injection. The patient will try Medrol Dosepak in the meantime with instructions and side effects to be aware of with the medication and we will follow up in approximately 2 weeks. We will plan on lumbar epidural steroid injection L4-L5 level at that time. WENDY CASTELLANOS MD DR: JAMAL/marcela JOB#: [id number] / [id number]
== END | disposition home or self-care (01) ==
LOC: PNCL 10:59
PROVIDERS: ATTEND Anesthesiology
DX: M48.061 Spinal stenosis, lumbar region without neurogenic claudication (principal); M51.16 Intervertebral disc disorders with radiculopathy, lumbar region; M96.1 Postlaminectomy syndrome, not elsewhere classified
CPT/HCPCS: G0463

== ENCOUNTER → 2018-08-28 | Outpatient (CLI) | payer OTHER ==
[~2018-08-28] MED LIST changes: +IOHEXOL 180 MG/ML 10 ML VIAL. ONE; +methylPREDNISolone ACETATE 40 MG/ML VIAL. ONE; +methylPREDNISolone ACETATE 80 MG/ML VIAL. ONE
--- NOTE | 2018-08-29 00:55 | PAIN ---
DATE OF SERVICE: 08/28/2018 PROGRESS NOTE FOR PAIN CLINIC DIAGNOSES: Lumbar radiculopathy with lumbar spinal stenosis, lumbar degenerative disk disease and post-lumbar laminectomy syndrome. HISTORY OF PRESENT ILLNESS: The patient is a 58-year-old male who returns for followup status post lumbar epidural steroid injection x 1 and preauthorization after his last visit for office visit insurance requirement for a second lumbar epidural steroid injection. The patient reports again about 65% better after the first injection, was better walking, increasing activity at home, still using a cane in his right hand, but significantly improved with ambulation and traveling. He is sleeping better at night. The patient reports the pain is returning; however, in the low back and right lower extremity to a moderate extent in the posterior gluteus, posterolateral thigh, lateral anterior thigh, anterior medial thigh, especially in the medial lower leg. The patient reports no new motor or sensory deficits, no new bowel or bladder incontinence. He rates the pain as a 9 on a scale of 10 at its worst, 9 on average and a 5 at its least and is a 9 today. The patient reports it is burning, cramping, aching, tight, radiating, becoming more constant with time and activity. The patient reports no new motor or sensory deficits; however, no new bowel or bladder incontinence or other complaints. PHYSICAL EXAMINATION: VITAL SIGNS: The patient's blood pressure 123/48, pulse is 56, respirations 20, temperature is 98.2 degrees Fahrenheit and weight is 217 pounds. GENERAL: The patient is awake, alert, oriented, appropriate, very pleasant demeanor. HEENT: Shows normocephalic and atraumatic. Extraocular movements are intact and symmetrical. Oral cavity: Mucous membranes are moist and pink. Dentition is intact. NECK: Shows anterior throat is supple without palpable lymphadenopathy noted. Swallow reflex is symmetrical. CHEST: Shows normal on inspection. Breath sounds are clear to auscultation bilaterally. HEART: Shows S1 and S2 clear. No murmurs are auscultated. ABDOMEN: Soft, nontender and nondistended. No palpable organomegaly is noted. No rebound or guarding demonstrated. BACK: Shows spine grossly in the midline. Normal appearing thoracic kyphosis and lumbar lordotic curvature. Lumbar paraspinous musculature is tender with palpation bilaterally, but only diffusely without significant radiation. The patient has good rotational motion of the lumbar spine both laterally as well extension and flexion without difficulty. EXTREMITIES: Lower extremities show deep tendon reflexes at 1+ in the patellar and tendo calcaneus tendons are equal. Motor exam is approximately 4 on a scale of 5 on the right and 5/5 on the left. Peripheral pulses are 1+ posterior tibial. No peripheral edema is noted bilaterally. Options were discussed with the patient. The patient's old chart was reviewed as was his current medication regimen updated. Current review of systems updated today as well. We will proceed with a second in the series of lumbar epidural steroid injection today with fluoroscopic guidance. Risks were again discussed including, but not limited to bleeding, infection, possibility of epidural hematoma, subsequent neurological compromise, dural puncture, headaches, spinal cord and/or nerve damage, side effects of steroid medication and poor results regarding pain control. The patient understands and wished to proceed. The patient will return to the clinic in approximately 2 weeks for followup and was counseled as to return appointment, activity level and side effects to be aware of. DIAGNOSIS: Lumbar radiculopathy with lumbar degenerative disk disease and lumbar spinal stenosis and post-lumbar laminectomy syndrome. PROCEDURE: Lumbar epidural steroid injection, translaminar approach L4-L5 level using C-arm fluoroscopic guidance under sterile prep and drape using local anesthetic. MEDICATION INJECTED: A total of 120 mg Depo-Medrol plus 10 mL of preservative-free normal saline and 2 mL of Isovue for contrast. CONDITION AT DISCHARGE: Stable. The patient tolerated the procedure well and had no complications. WENDY CASTELLANOS MD DR: JAMAL/marcela JOB#: [id number] / [id number]
== END ==
LOC: PNCL 10:14
PROVIDERS: ATTEND Anesthesiology
DX: M51.16 Intervertebral disc disorders with radiculopathy, lumbar region (principal); M48.061 Spinal stenosis, lumbar region without neurogenic claudication; M96.1 Postlaminectomy syndrome, not elsewhere classified
CPT/HCPCS: 62323; J1030; J1040; Q9965

== ENCOUNTER → 2020-01-15 | Outpatient (CLI) | payer MEDICARE ==
[~2020-01-15] MED LIST changes: +CARV6.2511 PO; -IOHEXOL 180 MG/ML 10 ML VIAL. ONE; +LUBI24CA7 PO; +MULT-445 PO; -MULT1TAB52 PO; +TIZA4TAB2 PO; -methylPREDNISolone ACETATE 40 MG/ML VIAL. ONE; -methylPREDNISolone ACETATE 80 MG/ML VIAL. ONE
[2020-01-15 11:01] LABS: BASO % 1 % (0-3); EOS # 0.1 x10^3/uL (0.0-0.7); EOS % 2 % (0-3); HEMATOCRIT 47.7 % (39.0-53.0); HEMOGLOBIN 16.4 g/dL (13.0-17.5); LYMPH # 1.5 x10^3/uL (1.0-4.8); LYMPH % 41 % (24-48); MEAN CORPUSCULAR HEMOGLOBIN 30 pg (25-35); MEAN CORPUSCULAR HGB CONC 34 g/dL (31-37); MEAN CORPUSCULAR VOLUME 87 fL (79-100); MONO # 0.5 x10^3/uL (0.0-1.1); MONO % 13 % (0-9); NEUT # 1.6 x10^3/uL (1.8-7.7); NEUT % 43 % (31-73); PLATELET COUNT 121 x10^3/uL (140-400); RED BLOOD COUNT 5.47 x10^6/uL (4.30-5.70); RED CELL DISTRIBUTION WIDTH 13.7 % (11.5-14.5); WHITE BLOOD COUNT 3.7 x10^3/uL (4.0-11.0)
[2020-01-15 11:16] LABS: ALBUMIN 3.4 g/dL (3.4-5.0); ALBUMIN/GLOBULIN RATIO 0.9 (1.0-1.7); CALCIUM 8.3 mg/dL (8.5-10.1); CREATININE 1.2 mg/dL (0.7-1.3); GFR 74.7; POTASSIUM 4.1 mmol/L (3.5-5.1); TOTAL BILIRUBIN 0.7 mg/dL (0.2-1.0)
[2020-01-15 11:17] LABS: PROTHROMBIN TIME PATIENT 13.4 SEC (11.7-14.0)
[2020-01-15 23:08] LABS: HEMOGLOBIN A1C 5.5 % (4.8-5.6)
== END ==
LOC: SURGPAT 10:05
PROVIDERS: ATTEND Neurological Surgery
DX: Z01.812 Encounter for preprocedural laboratory examination (principal); M47.26 Other spondylosis with radiculopathy, lumbar region; Z20.828 Contact with and (suspected) exposure to other viral communicable diseases
CPT/HCPCS: 80053; 83036; 85025; 85610; 85730; 87641; U0003

== ENCOUNTER → 2020-02-05 | Outpatient (CLI) | payer MEDICARE ==
[~2020-02-05] MED LIST changes: +OXYC-325 PO; +SENN1TAB99 PO
== END ==
LOC: LAB 14:04
PROVIDERS: ATTEND Neurological Surgery
DX: Z01.812 Encounter for preprocedural laboratory examination (principal); Z20.828 Contact with and (suspected) exposure to other viral communicable diseases; M54.16 Radiculopathy, lumbar region
CPT/HCPCS: U0003

== ENCOUNTER 2020-02-09 07:26 | Day surgery (SDC) | payer MEDICARE ==
[~2020-02-09] VITALS: Ht 180.3 cm; Wt 98.5 kg
[~2020-02-09 07:26] MED LIST changes: +BACITRACIN 50,000 UNIT in IV NORMAL SALINE 1000ML BAG 1,000 ML IRR ONE; +BUPIVACAINE MPF 0.5% 30 ML VIAL. ONE; +GELATIN SPONGE SIZE 100. ONE; +HYDROmorphone 2 MG/ML VIAL IV PRN; +IV RINGERS,LACTATED 1000ML 1,000 ML IV SCH; +LIDOCAINE 1%/EPI 1:100,000 20 ML VIAL. ONE; +MORPHINE SULFATE 2 MG/ML VIAL. IV PRN; +ONDANSETRON PF 4 MG/2 ML VIAL. IV PRN; -OXYC-325 PO; +PROCHLORPERAZINE 10 MG/2 ML VIAL. IV PRN; -SENN1TAB99 PO; +THROMBIN TOPICAL 20,000 UNIT SPRAY.SYRN KIT TP ONE; +fentaNYL PF VIAL 100 MCG/2 ML VIAL IV PRN
[2020-02-09] MEDS ORDERED: ONDANSETRON PF 4 MG/2 ML VIAL. ONE (08:01)
[2020-02-09] MEDS ORDERED: DEXAMETHASONE SOD PHOS 4 MG/ML VIAL ONE (08:01)
[2020-02-09] MEDS ORDERED: PROPOFOL 10 MG/ML (20ML) VIAL. IV ONE (08:01)
[2020-02-09] MEDS ORDERED: ROCURONIUM 50 MG/5 ML VIAL. ONE (08:01)
[2020-02-09] MEDS ORDERED: PROPOFOL 50 ML IV ONE ×3 (08:01→10:30)
[2020-02-09] MEDS ORDERED: 0.9 % SODIUM CHLORIDE 20 ML VIAL. IJ ONE ×2 (08:01→08:14)
[2020-02-09] MEDS ORDERED: fentaNYL PF VIAL 250 MCG/5 ML VIAL ONE (08:01)
[2020-02-09] MEDS ORDERED: LIDOCAINE 2% PF 5 ML VIAL. ONE (08:01)
[2020-02-09] MEDS ORDERED: REMIFENTANIL 1 MG VIAL. IV ONE ×2 (08:01→10:58)
[2020-02-09] MEDS ORDERED: PHENYLEPHRINE 10 MG/ML VIAL. ONE (08:02)
[2020-02-09] MEDS ORDERED: DEXAMETHASONE SOD PHOS 20 MG/5 ML VIAL. ONE (08:02)
[2020-02-09] MEDS ORDERED: SUCCINYLCHOLINE 200 MG/10 ML VIAL. ONE (08:21)
[2020-02-09] MEDS ORDERED: ePHEDrine PF IN SALINE 50 MG/10 ML SYRINGE. IV ONE (09:49)
[2020-02-09] MEDS ORDERED: SEVOFLURANE > 120 MINUTES. IH ONE (10:22)
[2020-02-09] MEDS ORDERED: GLYCOPYRROLATE 1 MG/5 ML VIAL. ONE (10:47)
[2020-02-09] MEDS ORDERED: ESMOLOL 100 MG/10 ML VIAL. IVP ONE (11:09)
[2020-02-09] MEDS ORDERED: NEOSTIGMINE METHYLSULFATE 5 MG/5 ML SYRINGE. ONE (11:30)
--- NOTE | 2020-02-09 12:10 | PDOC ---
BRIEF OPERATIVE NOTE Date: Feb 09, 2020 Pre-Op Diagnosis lumbar stenosis, lumbar radiculopathy Post-Op Diagnosis same Procedure Performed redo right L4-5 hemilaminotomy Surgeon Antoinette Anesthesia Type: General Blood Loss 10mL Specimens Obtained decompression Findings significant stenosis right L4-5, neuromonitoring improved upon completion of procedure Complications none apparent MIRELLA MORALES MD Feb 09, 2020 12:10
[2020-02-09] MEDS ORDERED: IV NORMAL SALINE 1000ML BAG 1,000 ML IV SCH (12:17)
[2020-02-09] MEDS ORDERED: diphenhydrAMINE 50 MG/ML VIAL IV PRN (12:30)
[2020-02-09] MEDS ORDERED: oxyCODONE/APAP 5/325 1 TAB TABLET PO PRN ×2 (12:30)
[2020-02-09] MEDS ORDERED: fentaNYL PF VIAL 100 MCG/2 ML VIAL IVP PRN ×2 (12:30)
[2020-02-09] MEDS ORDERED: NALOXONE 0.4 MG/ML VIAL. IV PRN ×2 (12:30)
[2020-02-09] MEDS ORDERED: ONDANSETRON PF 4 MG/2 ML VIAL. IVP PRN (12:30)
[2020-02-09] MEDS ORDERED: CALCIUM CARBONATE 500 MG TAB.CHEW PO PRN (12:30)
[2020-02-09] MEDS ORDERED: MAGNESIUM HYDROXIDE 2,400 MG/30 ML ORAL.SUSP. PO PRN (12:30)
[2020-02-09] MEDS ORDERED: 0.9 % SODIUM CHLORIDE 10 ML DISP.SYRIN. IV PRN (12:30)
[2020-02-09] MEDS ORDERED: ZOLPIDEM 5 MG TABLET. PO PRN (12:30)
[2020-02-09] MEDS ORDERED: MAG HYDROX/ALUMINUM HYD/SIMETH 30 ML ORAL.SUSP PO PRN (12:30)
[2020-02-09] MEDS ORDERED: ACETAMINOPHEN 325 MG TABLET. PO PRN (12:30)
[2020-02-09] MEDS ORDERED: diphenhydrAMINE HCL 25 MG CAPSULE PO PRN (12:30)
[2020-02-09] MEDS: fentaNYL PF VIAL 100 MCG/2 ML VIAL IV PRN ×2 (13:01→13:28)
[2020-02-09] MEDS ORDERED: OXYC-325 PO (13:42)
[2020-02-09] MEDS ORDERED: METH-38 PO (13:43)
[2020-02-09] MEDS ORDERED: SENN1TAB99 PO (13:44)
[2020-02-09] MEDS ORDERED: METHOCARBAMOL 750 MG TABLET PO SCH (14:00)
[2020-02-09] MEDS ORDERED: IBUPROFEN 400 MG TABLET. PO PRN (14:30)
[2020-02-09 14:40] VITALS: BP 2/4
[2020-02-09] MEDS ORDERED: predniSONE 5 MG TABLET PO SCH (15:00)
[2020-02-09] MEDS ORDERED: LUBIPROSTONE 24 MCG CAPSULE PO SCH (17:00)
[2020-02-09] MEDS ORDERED: CARVEDILOL 6.25 MG TABLET. PO SCH (17:00)
[2020-02-09] MEDS ORDERED: FERROUS SULFATE 325 MG TABLET. PO SCH (17:00)
[2020-02-09] MEDS ORDERED: SENNOSIDES/DOCUSATE 8.6/50MG TABLET. PO SCH (21:00)
[2020-02-09] MEDS ORDERED: DOCUSATE SODIUM 100 MG CAPSULE. PO SCH (21:00)
[2020-02-10] MEDS ORDERED: MULTIVITAMIN with MINERAL TABLET. PO SCH (09:00)
[2020-02-10] MEDS ORDERED: NON FORMULARY ITEM (Mirabegron (Myrbetriq) 50 MG) PO SCH (09:00)
--- NOTE | 2020-02-12 22:06 | PATHOLOGY ---
[facility] Accession Number: [id number] . 01 Material submitted: . vertebral column - DECOMPRESSION . 01 Clinical history: . LUMBAR RADICULOPATHY, LUMBAR STENOSIS . 02 Diagnosis: "Decompression", hemilaminectomy/decompression: - Intervertebral disc material, decalcified bony fragments, cartilage/periosteum and fibrous connective tissue with reactive and degenerative changes. (CLW/db; 02/12/2020) LBQ 02/12/2020 1536 Local . 02 Electronically signed: . Gabriela Pedersen MD, Pathologist NPI- [id number] . 01 Gross description: . Received in formalin labeled "[place] Jr., Jun, decompression" is a 2.5 x 1.3 x 0.3 cm aggregate of limon-white bony tissue and red-brown clotted blood material. The specimen is submitted entirely in cassette A1 following decalcification. [place] [place] [facility] 02/11/2020 1605 Local . 02 Pathologist provided ICD-10: M54.16, M99.73 . 02 CPT . 624389, [id number] Specimen Comment: A courtesy copy of this report has been sent to [phone] Specimen Comment: Report sent to / DR ECHAVARRIA Performed at: 01 [facility] [address], [place] [id number] MD Wally Swift MD Phone: [phone] Performed at: 02 [facility] [address] [place], [place] [id number] MD John White MD Phone: [phone]
--- NOTE | 2020-02-22 20:27 | OP ---
DATE OF SURGERY: 02/09/2020 SURGEON: Marcos Morales MD COREMAKER MACHINE: None. PREOPERATIVE DIAGNOSES: Lumbar stenosis with lumbar radiculopathy. POSTOPERATIVE DIAGNOSES: Lumbar stenosis with lumbar radiculopathy. PROCEDURE: Redo right L4-L5 hemilaminotomy for decompression. Neuromonitoring. ANESTHESIA: General. COMPLICATIONS: None. INDICATIONS FOR THE PROCEDURE: The patient is a 59-year-old gentleman with significant right lower extremity pain refractory to nonsurgical treatments localized to significant stenosis on the right at L4-L5. DESCRIPTION OF PROCEDURE: After informed consent was obtained, the patient was brought into the operating room and was placed under general anesthesia. Ancef was instituted. Neuromonitoring was instituted and baseline potentials were obtained. The patient was placed prone on the Stevie table with all pressure points checked and padded appropriately. Previous lumbar incision was noted and fluoroscopy was utilized to localize an appropriate incision location to his current pathology to localize the region of L4-L5 on the right. The region was prepped and draped in the usual sterile fashion after localization and a scalpel was utilized to reopen inferior portion of his prior surgical location. Monopolar electrocautery was utilized to dissect the avascular midline to the spinous processes of L4-L5 and extended laterally on the right to expose the region of interest. A significant amount of scar tissue was encountered and a curette was utilized to gently dissect scar tissue from the previous partial hemilaminectomy. Once completed, the region was again verified with fluoroscopy prior to the initiation of decompression and a pneumatic drill as well as Kerrison was utilized to perform a redo right L4-L5 hemilaminotomy. A portion of the previous ligament was encountered and this was gently removed after dissection from the thecal sac with a blunt nerve hook. The adjacent nerve root was identified and dissected carefully from the underlying scar tissue. This was noted to be very well decompressed upon completion of this. This was verified with direct visualization as well as confirmation from improvement of neuromonitoring potentials after the decompression. Decompression material was sent to pathology for permanent section. Pristine hemostasis was achieved with some use of bipolar electrocautery as well as generous irrigation. The wound was generously irrigated with antibiotic irrigation upon completion of the procedure. The muscles and fascia were then reapproximated with 0 Vicryl in simple interrupted fashion. Subcutaneous tissues reapproximated with 2-0 Vicryl in interrupted inverted fashion and the skin was reapproximated with 4-0 Vicryl in a running subcuticular fashion. The wound was dressed with Mastisol, Steri-Strips, Telfa, 4 x 4 and Tegaderm. At the end of the procedure, all needle and sponge counts were correct x 2. The patient was extubated in the operating room and taken to recovery in stable condition. There were no intraprocedural complications apparent. MARCOS MORALES MD DR: ÁNGEL/marcela JOB#: [id number] / [id number] SCOT
== END 2020-02-09 14:50 | disposition home or self-care (01) ==
LOC: SURG 07:26
PROVIDERS: ATTEND Neurological Surgery
DX: M54.16 Radiculopathy, lumbar region (principal); M48.061 Spinal stenosis, lumbar region without neurogenic claudication; I10 Essential (primary) hypertension; K21.9 Gastro-esophageal reflux disease without esophagitis; N40.0 Benign prostatic hyperplasia without lower urinary tract symptoms; M19.90 Unspecified osteoarthritis, unspecified site; Z79.899 Other long term (current) drug therapy; Z98.890 Other specified postprocedural states; Z88.2 Allergy status to sulfonamides
CPT/HCPCS: 63030; 76000; 88304; 88311; 97161; A7015; J0330; J0690; J1100; J2370; J2704; J2710; J3010; J3490; J7030; J7120; J2405